=== PATIENT | male | born 1995 | race Asian ===

== ENCOUNTER 2019-12-22 02:38 | Emergency (ER) | payer BC ==
[~2019-12-22] VITALS: Ht 182.9 cm; Wt 71.7 kg
[2019-12-22 02:56] VITALS: BP 128/79
[2019-12-22] MEDS ORDERED: HYDROCODONE/APAP 5/325MG TABLET PO ONE (03:30)
[2019-12-22] MEDS ORDERED: CYCLOBENZAPRINE 10 MG TABLET PO ONE (03:30)
[2019-12-22] MEDS ORDERED: IBUPROFEN 600 MG TABLET PO ONE ×2 (03:30→03:32)
[2019-12-22] MEDS ORDERED: CYCLOBENZAPRINE 10 MG TABLET ONE (03:32)
[2019-12-22] MEDS ORDERED: HYDROCODONE/APAP 5/325MG TABLET ONE (03:32)
== END 2019-12-22 03:41 | disposition home or self-care (01) ==
LOC: ER 02:46
DX: M54.5 Low back pain (principal); V49.49XA Driver injured in collision with other motor vehicles in traffic accident, initial encounter; Y93.89 Activity, other specified; Y92.488 Other paved roadways as the place of occurrence of the external cause; Y99.8 Other external cause status